=== PATIENT | female | born 1950 | race Hispanic/Latino ===

== ENCOUNTER 2018-08-26 14:24 | Outpatient (RCR) | payer MEDICARE ==
[~2018-08-26 14:24] MED LIST: ACETAMINOP325 MG/10 PO; HYDROCHLOROTH12.5 M1 PO; LOSARTAN POTASS25 MG; LOVASTATIN20 MG PO; METFORMIN HCL850 MG PO; METOCLOPRAMIDE10 MG PO; TYLENOL WITH C1 EACH PO
== END 2018-09-23 ==
LOC: PT 14:24
PROVIDERS: ATTEND Specialist
DX: M25.561 Pain in right knee (principal); M17.11 Unilateral primary osteoarthritis, right knee

== ENCOUNTER 2018-11-18 14:54 | Outpatient (RCR) | payer MEDICARE | END 2018-11-21 | LOC: PT 14:54 | PROVIDERS: ATTEND Internal Medicine | DX: M17.11 Unilateral primary osteoarthritis, right knee (principal); M70.61 Trochanteric bursitis, right hip ==

== ENCOUNTER → 2018-12-21 | Outpatient (RCR) | payer MEDICARE | LOC: PT 11-22 16:02 | PROVIDERS: ATTEND Internal Medicine | DX: M17.11 Unilateral primary osteoarthritis, right knee (principal); M70.61 Trochanteric bursitis, right hip | CPT/HCPCS: 97139 ==

== ENCOUNTER 2019-01-18 15:57 | Outpatient (RCR) | payer MEDICARE | END 2019-01-21 | LOC: PT 15:57 | PROVIDERS: ATTEND Internal Medicine | DX: M17.11 Unilateral primary osteoarthritis, right knee (principal); M70.61 Trochanteric bursitis, right hip; M62.81 Muscle weakness (generalized); R26.2 Difficulty in walking, not elsewhere classified ==